=== PATIENT | male | born 1945 | race Caucasian/White ===

== ENCOUNTER 2017-01-13 03:38 | Inpatient (IN) | payer MEDICARE ==
[2017-01-13] VITALS (26 sets, daily range): BP systolic 90–176; BP diastolic 63–109; PULSE 69–136; RESP 14–28; TEMP 97.8–103.1; O2SAT 81–100
[~2017-01-13] VITALS: Ht 170.2 cm; Wt 90.9 kg
[~2017-01-13 03:38] MED LIST: ASPI81CH7 CHEW; ATOR80TA45 PO; BISO5TAB5 PO; DILA1LIQ PO; ERGO2000 PO; FINA5TAB2 PO; FLUT1INH INH; FOLI1CAP7 PO; FURO20TA PO; IPRASOL INH; LEVA750T PO; MORP15TA73 PO; PRED20 PO; TAMS5CAP PO
[2017-01-13] MEDS ORDERED: SODIUM CHLORIDE 0.9% FLUSH 10 ML FLUSH IVF PRN (04:00)
[2017-01-13] MEDS ORDERED: methylPREDNISolone SOD SUCC 125 MG/2 ML VIAL IV PUSH ONE (04:00)
[2017-01-13] MEDS ORDERED: ACETAMINOPHEN 500 MG CPLT PO ONE (04:00)
[2017-01-13] MEDS ORDERED: AZITHROMYCIN INJ 500 MG in SODIUM CHLOR 0.9% 250 ML INJ 250 ML IV ONE (04:15)
[2017-01-13] MEDS ORDERED: CEFEPIME INJ 2,000 MG in SODIUM CHLORIDE 0.9% INJ 100 ML IV ONE (04:15)
[2017-01-13] MEDS: RESP: ALBUTEROL 2.5 MG/IPRATROPIUM 0.5 MG NEB (SCH) INH ×6 (04:21→21:27)
--- NOTE | 2017-01-13 04:29 | RADRPT ---
EXAM DATE/TIME: 01/13/2017 04:09 [place] COMPARISON: CHEST SINGLE AP, February 19, 2016, 3:38. INDICATIONS : Shortness of breath. MEDICAL HISTORY : Hypertension. Cardiovascular disease. Chronic obstructive pulmonary disease. SURGICAL HISTORY : None. ENCOUNTER: Initial ACUITY: 1 day PAIN SCORE: 0/10 LOCATION: Bilateral chest FINDINGS: The cardiac silhouette is enlarged in transverse diameter. There is elevation of the left hemidiaphra gm. There is prominence of the central pulmonary vasculature with indistinct vascular margins compati ble with vascular congestion but no evidence of overt failure. CONCLUSION: 1. Cardiomegaly and findings of vascular congestion without overt failure.8 Elvin Casillas MD on January 13, 2017 at 4:26 Board Certified Radiologist. This report was verified electronically.
[2017-01-13 04:37] LABS: CHLORIDE 97 MEQ/L (98-107); POTASSIUM 3.9 MEQ/L (3.5-5.1); SODIUM (NA) 134 MEQ/L (136-145)
[2017-01-13 04:41] LABS: ANION GAP 4 MEQ/L (5-15); APTT (PATIENT) 27.5 SEC (24.3-30.1); BICARBONATE 32.8 MEQ/L (21.0-32.0); BLOOD UREA NITROGEN 38 MG/DL (7-18); INTERNATIONAL NORMALIZED RATIO 1.1 RATIO; MAGNESIUM 2.1 MG/DL (1.5-2.5); PROTHROMBIN TIME - PATIENT 11.7 SEC (9.8-11.6)
[2017-01-13 04:43] LABS: AUTOMATED NEUTROPHIL # 12.2 TH/MM3 (1.8-7.7); BASOPHIL % 0.3 % (0.0-2.0); EOSINOPHIL # 0.6 TH/MM3 (0-0.4); HEMATOCRIT 40.2 % (39.0-51.0); LYMPH % 6.6 % (9.0-44.0); LYMPHOCYTE # 0.9 TH/MM3 (1.0-4.8); MEAN CELL VOLUME 83.2 FL (80.0-100.0); MEAN CORPUSCULAR HEMOGLOBIN 27.1 PG (27.0-34.0); MEAN CORPUSCULAR HGB CONC 32.5 % (32.0-36.0); MONO % 2.2 % (0.0-8.0); NEUT % 86.9 % (16.0-70.0); PLATELET COUNT 237 TH/MM3 (150-450); RED BLOOD COUNT 4.83 MIL/MM3 (4.50-5.90); RED CELL DISTRIBUTION WIDTH 15.6 % (11.6-17.2)
[2017-01-13 04:44] LABS: ALT (GPT) 17 U/L (12-78); AST (GOT) 11 U/L (15-37); GLOMERULAR FILTRATION RATE 79 ML/MIN (>89)
[2017-01-13 04:46] LABS: HEMO FLAGS DIFF FINAL; TOTAL BILIRUBIN ADULT 0.6 MG/DL (0.2-1.0)
[2017-01-13 04:47] LABS: ALKALINE PHOSPHATASE 99 U/L (45-117)
[2017-01-13 04:51] LABS: CREATINE KINASE 42 U/L (39-308)
--- NOTE | 2017-01-13 05:03 | PD ---
HPI Chief Complaint: Respiratory Symptoms Time Seen by Provider: 03:56 Travel History International Travel<30 days: No Contact w/Intl Traveler<30days: No Traveled to known affect area: No History of Present Illness HPI 71-year-old male presents to the emergency department for marked shortness of breath fever and cough worsening since midnight. Patient with fever at home of 10 2F. No medications administered since onset of fever. According to patient and at bedside patient just completed a 10 day course of Levaquin and steroid therapy for outpatient bronchitis/pneumonia. Symptoms have worsened so presents to the emergency room at this time. Patient denies chest pain or orthopnea. Patient has extensive past medical history including dyslipidemia COPD with paralysis of left hemidiaphragm on the care of Dr. Gross chronic pain syndrome with intrathecal pump CAD with stents 2 pneumonia cholecystectomy kidney disease recurring UTI prostatitis ulcer colitis. Patient denies any lower extremity pain or swelling. Patient's had no abdominal pain nausea vomiting or diarrhea. PFSH Past Medical History Narrative Medical CAD cardiac stents hypertension dyslipidemia COPD chronic pain with intrathecal pump polycystic kidney disease; no tobacco use; nursing notes reviewed Hx Anticoagulant Therapy: Yes (PLAVIX) Heart Rhythm Problems: Yes Cancer: No Cardiac Catheterization: Yes Cardiovascular Problems: Yes High Cholesterol: Yes Chest Pain: Yes COPD: Yes ("NON WORKING LEFT DIAPHRAGM AND LUNG") Coronary Artery Disease: Yes Diminished Hearing: No Endocrine: No Gastrointestinal Disorders: Yes GERD: Yes Genitourinary: Yes ( BILATERAL POLYCYSTIC KIDNEYS, UTI) Hypertension: Yes Implanted Vascular Access Dvce: Yes Musculoskeletal: Yes Neurologic: Yes Psychiatric: No Reproductive: No Respiratory: Yes Immunizations Current: Yes Migraines: Yes Sleep Apnea: Yes Past Surgical History Abdominal Surgery: Yes (HERNIA X 5) Body Medical Devices: PAIN PUMP, AND 2 STENTS Cardiac Surgery: Yes (2 STENTS) Coronary Stent: Yes (X 2) Neurologic Surgery: Yes (gas.) Other Surgery: Yes Social History Alcohol Use: Yes (OCC) Tobacco Use: No (FORMER) Substance Use: No Allergies-Medications (Allergen,Severity, Reaction): Coded Allergies: penicillin G (Unverified Allergy, Severe, SHOCK, 01/13/17) *MDRO Multi-Drug Resistant Organism (Unverified Adverse Reaction, Unknown , 01/13/17) MRSA PCR Screen negative 10/05/14 & 02/17/16 Cleared per Infection Control Reported Meds & Prescriptions Reported Meds & Active Scripts Active Duoneb (Ipratropium-Albuterol Neb) 0.5-2.5 Mg/3 Ml Neb 1 Nebule INH Q6HR NEB PRN Prednisone 20 Mg Tab 20 Mg PO BID Reported Ventolin Hfa 18 GM Inh (Albuterol Sulfate) 90 Mcg/Act Aer 1 Puff INH Q4H PRN Potassium Chloride ER (Potassium Chloride) 20 Meq Tab 99 Meq PO DAILY [place] (Hydrocodone-Acetaminophen) 7.5-325 mg Tab 1 Tab PO Q6H PRN Vitamin D2 (Ergocalciferol) 2,000 Unit Tab 2,000 Units PO WEEKLY Furosemide 20 Mg Tab 20 Mg PO DAILY Folic Acid 800 Mcg Cap 1,600 Mcg PO DAILY Flomax (Tamsulosin HCl) 0.4 Mg Cap 0.4 Mg PO BID Finasteride 5 Mg Tab 5 Mg PO HS Do not crush. Dilaudid Liq (Hydromorphone HCl) 1 Mg/Ml Liq 5 Mg PO Q4H PRN Breo Ellipta Inh (Fluticasone/Vilanterol) 100-25 Mcg/Act Inh 1 Puff INH DAILY Use daily at the same time. Bisoprolol (Bisoprolol Fumarate) 5 Mg Tab 2.5 Mg PO DAILY Atorvastatin (Atorvastatin Calcium) 80 Mg Tab 80 Mg PO HS Aspirin Children's (Aspirin) 81 Mg Chew 81 Mg CHEW DAILY Physical Exam Narrative GENERAL: Well-developed elderly male in obvious respiratory distress with hypoxemia placed on supplemental oxygen and BiPAP ordered SKIN: Warm and dry. HEAD: Normocephalic. EYES: No scleral icterus. No injection or drainage. NECK: Supple, trachea midline. No JVD or lymphadenopathy. CARDIOVASCULAR: Regular rate and rhythm without murmurs, gallops, or rubs. RESPIRATORY: Breath sounds equal bilaterally diminished with work of breathing and accessory muscle use. GASTROINTESTINAL: Abdomen soft, non-tender, nondistended. MUSCULOSKELETAL: No cyanosis, or edema. BACK: Nontender without obvious deformity. No CVA tenderness. Data Data Last Documented VS Vital Signs Date Time Temp Pulse Resp B/P (MAP) Pulse Ox O2 Delivery O2 Flow Rate FiO2 01/13/17 05:00 96 BiPAP 01/13/17 04:45 128 16 16.00 80 01/13/17 03:44 103.1 Orders Orders Complete Blood Count With Diff (01/13/17 03:56) Comprehensive Metabolic Panel (01/13/17 03:56) B-Type Natriuretic Peptide (01/13/17 03:56) Act Partial Throm Time (Ptt) (01/13/17 03:56) Prothrombin Time / Inr (Pt) (01/13/17 03:56) Magnesium (Mg) (01/13/17 03:56) Ckmb (Isoenzyme) Profile (01/13/17 03:56) Troponin I (01/13/17 03:56) Urinalysis - C+S If Indicated (01/13/17 03:56) Influenzae A/B Antigen (01/13/17 03:56) Blood Culture (01/13/17 03:56) Iv Access Insert/Monitor (01/13/17 03:56) Electrocardiogram (01/13/17 03:56) Ecg Monitoring (01/13/17 03:56) Oximetry (01/13/17 03:56) Oxygen Administration (01/13/17 03:56) Chest, Single Ap (01/13/17 03:56) Sodium Chloride 0.9% Flush (Ns Flush) (01/13/17 04:00) Methylprednisolone So Succ Inj (Solumedr (01/13/17 04:00) Albuterol-Ipratropium Neb (Duoneb Neb) (01/13/17 04:00) Resp Bipap / Cpap Non Invas Vt (01/13/17 03:56) Acetaminophen (Tylenol) (01/13/17 04:00) Lactic Acid Sepsis Protocol (01/13/17 03:56) Cefepime Inj (Maxipime Inj) (01/13/17 04:15) Azithromycin Inj (Zithromax Inj) (01/13/17 04:15) Admit Order (Ed Use Only) (01/13/17 ) [employer] Adf Developer / Telemetry [id number] (01/13/17 05:39) Diet Heart Healthy (01/13/17 Breakfast) Activity Bed Rest (01/13/17 05:39) Notify Dr: Other (01/13/17 05:39) Labs Laboratory Tests Test 01/13/17 00:25 01/13/17 04:00 01/13/17 04:05 Urine Color YELLOW Urine Turbidity SLIGHT Urine pH 6.0 Urine Specific [place] 1.028 Urine Protein 30 mg/dL Urine Glucose (UA) 100 mg/dL Urine Ketones NEG mg/dL Urine Occult Blood TRACE Urine Nitrite NEG Urine Bilirubin NEG Urine Leukocyte Esterase SMALL Urine RBC 4-9 /hpf Urine WBC 50-99 /hpf Urine Squamous Epithelial Cells 0-5 /hpf Urine Hyaline Casts 0-2 /lpf Urine Mucus FEW /lpf Urine Yeast with Hyphae MANY Microscopic Urinalysis Comment CULTURE INDICATED B-Type Natriuretic Peptide 83 PG/ML White Blood Count 14.0 TH/MM3 Red Blood Count 4.83 MIL/MM3 Hemoglobin 13.1 GM/DL Hematocrit 40.2 % Mean Corpuscular Volume 83.2 FL Mean Corpuscular Hemoglobin 27.1 PG Mean Corpuscular Hemoglobin Concent 32.5 % Red Cell Distribution Width 15.6 % Platelet Count 237 TH/MM3 Mean Platelet Volume 8.1 FL Neutrophils (%) (Auto) 86.9 % Lymphocytes (%) (Auto) 6.6 % Monocytes (%) (Auto) 2.2 % Eosinophils (%) (Auto) 4.0 % Basophils (%) (Auto) 0.3 % Neutrophils # (Auto) 12.2 TH/MM3 Lymphocytes # (Auto) 0.9 TH/MM3 Monocytes # (Auto) 0.3 TH/MM3 Eosinophils # (Auto) 0.6 TH/MM3 Basophils # (Auto) 0.0 TH/MM3 CBC Comment DIFF FINAL Differential Comment Prothrombin Time 11.7 SEC Prothromb Time International Ratio 1.1 RATIO Activated Partial Thromboplast Time 27.5 SEC Blood Urea Nitrogen 38 MG/DL Creatinine 0.94 MG/DL Random Glucose 132 MG/DL Total Protein 6.9 GM/DL Albumin 3.1 GM/DL Calcium Level 8.9 MG/DL Magnesium Level 2.1 MG/DL Alkaline Phosphatase 99 U/L Aspartate Amino Transf (AST/SGOT) 11 U/L Alanine Aminotransferase (ALT/SGPT) 17 U/L Total Bilirubin 0.6 MG/DL Sodium Level 134 MEQ/L Potassium Level 3.9 MEQ/L Chloride Level 97 MEQ/L Carbon Dioxide Level 32.8 MEQ/L Anion Gap 4 MEQ/L Estimat Glomerular Filtration Rate 79 ML/MIN Lactic Acid Level 0.8 mmol/L Total Creatine Kinase 42 U/L Troponin I LESS THAN 0.02 NG/ML MDM Medical Decision Making Medical Screen Exam Complete: Yes Emergency Medical Condition: Yes Medical Record Reviewed: Yes Interpretation(s) EKG: Sinus tachycardia rate [address] elevation or injury pattern change noted no ectopy Chest x-ray cardiomegaly elevated left hemidiaphragm no noted lobar infiltrate but interstitial pattern concerning for pneumonia versus failure; BNP 82 CBC & BMP Diagram 01/13/17 04:05 Total Protein 6.9, Albumin 3.1 L, Calcium Level 8.9, Magnesium Level 2.1, Alkaline Phosphatase 99, Aspartate Amino Transf (AST/SGOT) 11 L, Alanine Aminotransferase (ALT/SGPT) 17, Total Bilirubin 0.6 Vital Signs Date Time Temp Pulse Resp B/P (MAP) Pulse Ox O2 Delivery O2 Flow Rate FiO2 01/13/17 03:44 103.1 136 26 172/109 (130) 81 Differential Diagnosis Dyspnea, pneumonia, CHF, ACS, LA, PE, pleural effusion, pericardial effusion, viral syndrome, influenza Narrative Course Patient placed on die turner with continuous pulse oximetry BiPAP ordered acetaminophen 1 g ordered blood cultures obtained along with lactic acid EKG performed which shows sinus tachycardia no injury pattern patient administered cefepime, azithromycin, and tobramycin in view of recent completion of 10 day course of Levaquin and steroid therapy with worsening symptoms. Patient given DuoNeb updrafts 3 and Solu-Medrol 125 mg IV At 5:14 AM patient is clinically improved on BiPAP oxygen saturations 98% heart rate has decreased to 110 blood pressure remains elevated work of breathing has diminished patient reports that he is symptomatically improved Intensity was notified regarding patient's admission to ICU patient markedly improved from initial presentation to ICU plan will be to admit to [facility] service Critical Care Narrative Aggregate critical care time was 35 minutes. Time to perform other separately billable procedures was not included in the critical care time. My time did not include minutes spent treating any other patients simultaneously or on activities that did not directly contribute to the patient's treatment. The services I provided to this patient were to treat and/or prevent clinically significant deterioration that could result in: Respiratory failure, LA, I provided critical care services requiring my management, as noted below: Chart data review, documentation time, medication orders and management, vital sign assessments/reviewing monitor data, ordering and reviewing lab tests, ordering and interpreting/reviewing x-rays and diagnostic studies, care of the patient and discussion of the patient with the admitting physicians. Sepsis Criteria SIRS Criteria (2 or more): Temp > 100.9 or < 96.8, Heart rate over 90, RR > 20 or PaCO2 < 32, WBC > 99991, < 4000 or > 10% bands Sepsis Criteria (SIRS+source): Infect source susp/known Physician Communication Physician Communication Skiver [place] notified; call placed to [facility] service for admission Diagnosis Primary Impression: Pneumonia Additional Impressions: Hypoxia COPD exacerbation Admitting Information Admitting Physician Requests: Admit Lora Ortiz MD Jan 13, 2017 05:03
[2017-01-13] MEDS ORDERED: RESP: ALBUTEROL 2.5 MG/IPRATROPIUM 0.5 MG NEB (PRN) INH (05:45)
[2017-01-13] MEDS ORDERED: ONDANSETRON HCL 4 MG/2 ML VIAL IV PUSH PRN (05:45)
[2017-01-13] MEDS ORDERED: ACETAMINOPHEN 325 MG TAB PO PRN (05:45)
[2017-01-13] MEDS ORDERED: SODIUM CHLORIDE 0.9% FLUSH 10 ML FLUSH IV FLUSH PRN (05:45)
[2017-01-13] MEDS ORDERED: POTA-163 PO (07:04)
[2017-01-13] MEDS ORDERED: CIPR-9 PO (07:04)
[2017-01-13] MEDS ORDERED: VENTAER INH (07:04)
[2017-01-13] MEDS ORDERED: HYDR-3288 PO (07:04)
[2017-01-13 08:16] LABS: BLOOD GAS BASE EXCESS 7.2 mmol/L (-2-2); BLOOD GAS CARBOXYHEMOGLOBIN 1.1 % (0-4); BLOOD GAS HCO3 32 mmol/L (22-26); BLOOD GAS METHEMOGLOBIN 1.3 % (0-2); BLOOD GAS O2 HGB SATURATION 97 % (90-100); BLOOD GAS OXYGEN CONTENT 18.2 Vol % (12.0-20.0); BLOOD GAS PCO2 51 mmHg (38-42); BLOOD GAS PO2 212 mmHg (61-120)
--- NOTE | 2017-01-13 08:16 | EKG ---
Date Performed: 01/13/2017 Time Performed: 04:18:21 PTAGE: 71 years EKG: SINUS TACHYCARDIA LEFT ATRIAL ENLARGEMENT NONSPECIFIC ST & T-WAVE ABNORMALITY ABNORMAL ECG PREVIOUS TRACING : 02/17/2016 07.02 No significant change from previous tracing noted. DOCTOR: Charlie Parra Interpretating Date/Time 01/13/2017 08:14:43
[2017-01-13 08:17] LABS: CRITICAL VALUE YES; DRAW SITE RT RADIAL; FIO2 70 %; NUMBER OF ARTERIAL PUNCTURES 1; OXYGEN DEVICE BIPAP; STAT YES; ULNAR PULSE PRESENT; VENT SETTINGS IPAP 12/EPAP 5
[2017-01-13] MEDS: SODIUM CHLORIDE 0.9% FLUSH 10 ML FLUSH IV FLUSH SCH ×2 (11:30→20:51)
[2017-01-13] MEDS: ENOXAPARIN SODIUM 40 MG/0.4 ML SYRINGE SQ SCH (13:00)
[2017-01-13] MEDS ORDERED: CHLORHEXIDINE GLUCONATE 2 % 1 PACK (2 CLOTHS)(extra cloths) TOPICAL PRN (13:15)
[2017-01-13] MEDS ORDERED: ACETAMINOPHEN/HYDROcodone 325 MG/5 MG TAB PO PRN (14:00)
--- NOTE | 2017-01-13 14:01 | HHI.HP ---
[facility] Ralph Perez MD Admission Diagnosis Sepsis; pneumonia; copd Diagnoses: (1) Failure of outpatient treatment Diagnosis: Principal (2) Community acquired pneumonia Diagnosis: Principal (3) COPD exacerbation Diagnosis: Secondary (4) Hypoxia Diagnosis: Secondary Chief Complaint: Fever and dyspnea Travel History International Travel<30 Days: No Contact w/Intl Traveler <30 Da: No Traveled to Known Affected Are: No History of Present Illness Written by Farzaneh Bashir, acting as scribe for Dr. Bustillo on 01/13/17 at 13:50. Mr. Palacio is a 71-year-old male patient with a known medical history of hypertension, hyperlipidemia, chronic pain with intrathecal pain pump and COPD who presented to the ED with complaints of worsening shortness of breath, fever and cough. Patient states he has completed a 10-day course of Levaquin and steroids for community-acquired pneumonia, started to feel better when all of a sudden overnight he developed a fever of 102 and developed worsening dyspnea and chills. Denies any recent chest pain, headache, abdominal pain, nausea, vomiting, diarrhea or dysuria. Patient does follow with Dr. 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 Usually uses a Trilogy machine at home for COPD. Also sees Dr. Dexter for his pain management and management of his intrathecal pain pump. It should be noted that patient usually has pneumonia every couple years requiring antibiotics. Review of Systems Constitutional: COMPLAINS OF: Fever, Chills Eyes: DENIES: Blurred vision Respiratory: COMPLAINS OF: Shortness of breath, DENIES: Cough Cardiovascular: DENIES: Chest pain, Palpitations, Lower Extremity Edema Gastrointestinal: DENIES: Abdominal pain, Constipation, Diarrhea, Nausea, Vomiting Psychiatric: COMPLAINS OF: Anxiety Except as stated in HPI: all other systems reviewed are Neg Past Family Social History Past Medical History CAD with history of stent placement Hypertension Dyslipidemia COPD Chronic pain with intrathecal pump Polycystic kidney disease Left lung paraesthesia GERD Sleep apnea Past Surgical History Intrathecal pain pump Hernia repair x 5 Cardiac stent placement x 2 Reported Medications Active Duoneb (Ipratropium-Albuterol Neb) 0.5-2.5 Mg/3 Ml Neb 1 Nebule INH Q6HR NEB PRN Prednisone 20 Mg Tab 20 Mg PO BID Reported Cipro (Ciprofloxacin HCl) 500 Mg Tab 500 Mg PO BID Ventolin Hfa 18 GM Inh (Albuterol Sulfate) 90 Mcg/Act Aer 1 Puff INH Q4H PRN Potassium Chloride ER (Potassium Chloride) 20 Meq Tab 99 Meq PO DAILY Tutwiler (Hydrocodone-Acetaminophen) 7.5-325 mg Tab 1 Tab PO Q6H PRN Vitamin D2 (Ergocalciferol) 2,000 Unit Tab 2,000 Units PO WEEKLY Furosemide 20 Mg Tab 20 Mg PO DAILY Folic Acid 800 Mcg Cap 1,600 Mcg PO DAILY Flomax (Tamsulosin HCl) 0.4 Mg Cap 0.4 Mg PO BID Finasteride 5 Mg Tab 5 Mg PO HS Do not crush. Dilaudid Liq (Hydromorphone HCl) 1 Mg/Ml Liq 5 Mg PO Q4H PRN Breo Ellipta Inh (Fluticasone/Vilanterol) 100-25 Mcg/Act Inh 1 Puff INH DAILY Use daily at the same time. Bisoprolol (Bisoprolol Fumarate) 5 Mg Tab 2.5 Mg PO DAILY Atorvastatin (Atorvastatin Calcium) 80 Mg Tab 80 Mg PO HS Aspirin Children's (Aspirin) 81 Mg Chew 81 Mg CHEW DAILY Allergies: Coded Allergies: penicillin G (Unverified Allergy, Severe, SHOCK, 01/13/17) *MDRO Multi-Drug Resistant Organism (Unverified Adverse Reaction, Unknown , 01/13/17) MRSA PCR Screen negative 10/05/14 & 02/17/16 Cleared per Infection Control Active Ordered Medications Current Medications Medications (Trade) Dose Ordered Sig/Bello Route Start Time Stop Time Status Last Admin Cefepime HCl 2000 mg/Sodium Chloride 100 ml @ 200 mls/hr Q8HR IV 01/13/17 14:00 Azithromycin 500 mg/Sodium Chloride 250 ml @ 250 mls/hr Q24H IV 01/14/17 07:00 (NS Flush) 2 ml UNSCH PRN IV FLUSH 01/13/17 05:45 (NS Flush) 2 ml BID IV FLUSH 01/13/17 09:00 (Tylenol) 650 mg Q4H PRN PO 01/13/17 05:45 (Zofran Inj) 4 mg Q6H PRN IV PUSH 01/13/17 05:45 (Duoneb Neb) 1 ampule Q6HR NEB INH 01/13/17 10:00 01/13/17 10:55 (Duoneb Neb) 1 ampule Q4HR NEB PRN INH 01/13/17 05:45 (Lovenox Inj) 40 mg Q24H SQ 01/13/17 09:00 Miscellaneous Information Patient in critical care unit? Ass... [id number] .XX 01/13/17 13:15 (Chlorhexidine 2% Cloth) 3 pack DAILY@04 TOPICAL 01/14/17 04:00 01/18/17 04:01 (Chlorhexidine 2% Cloth) 3 pack UNSCH PRN TOPICAL 01/13/17 13:15 01/18/17 13:10 Family History Paternal medical history significant for spinal fusion, hernias and aortic aneurysm. Maternal medical history significant for CABG. Social History Denies any tobacco use. Admits to occasional alcohol use. Denies any illicit drug use. Physical Exam Vital Signs Vital Signs Date Time Temp Pulse Resp B/P (MAP) Pulse Ox O2 Delivery O2 Flow Rate FiO2 01/13/17 12:00 99.3 74 18 125/78 (94) 96 01/13/17 12:00 74 01/13/17 11:30 96 Nasal Cannula 5.00 01/13/17 11:00 96 Nasal Cannula 5.00 01/13/17 10:53 66 16 99/67 (78) 94 01/13/17 10:45 95 35 01/13/17 10:05 97.8 69 18 103/69 (80) 94 BiPAP 01/13/17 10:05 94 BiPAP 01/13/17 09:20 99 40 01/13/17 08:15 100 70 01/13/17 07:47 92 20 110/75 (87) 96 BiPAP 01/13/17 07:15 100 80 01/13/17 06:55 90 20 98 BiPAP 70 01/13/17 06:27 93 16 119/71 (87) 100 BiPAP 01/13/17 05:45 96 16 101/71 (81) 99 BiPAP 01/13/17 05:00 96 BiPAP 01/13/17 04:45 128 16 176/103 (127) 94 BiPAP 16.00 80 01/13/17 04:15 94 100 01/13/17 03:55 130 28 90 Nasal Cannula 4.00 01/13/17 03:50 90 Nasal Cannula 4.00 01/13/17 03:44 103.1 136 28 122/109 (113) 01/13/17 03:44 103.1 136 26 172/109 (130) 81 Physical Exam GENERAL: This is a well-nourished, well-developed male patient, lying in bed with complaint of generalized pain. SKIN: No rashes, ecchymoses or lesions. Warm and dry. HEAD: Atraumatic. Normocephalic. Pupils equal round and reactive. Extraocular motions intact. No scleral icterus. No injection or drainage. Nose without bleeding. Airway patent. NECK: Trachea midline. No JVD. Supple. CARDIOVASCULAR: Regular rate and rhythm without murmurs, gallops, or rubs. RESPIRATORY: Minimal lung sounds in left lung field. Basilar crackles in right lung mosqueda. Breath sounds equal bilaterally. No wheezes, rales, or rhonchi. GASTROINTESTINAL: Abdomen soft, non-tender, nondistended. No guarding. Active bs x 4 q. MUSCULOSKELETAL: Extremities without clubbing, cyanosis, or edema. No joint tenderness, effusion, or edema noted. NEUROLOGICAL: Awake and alert. Cranial nerves II through XII intact. Motor and sensory grossly within normal limits. Five out of 5 muscle strength in all muscle groups. Normal speech. Laboratory Laboratory Tests Test 01/13/17 04:00 01/13/17 04:05 01/13/17 08:15 01/13/17 11:30 B-Type Natriuretic Peptide 83 White Blood Count 14.0 Red Blood Count 4.83 Hemoglobin 13.1 Hematocrit 40.2 Mean Corpuscular Volume 83.2 Mean Corpuscular Hemoglobin 27.1 Mean Corpuscular Hemoglobin Concent 32.5 Red Cell Distribution Width 15.6 Platelet Count 237 Mean Platelet Volume 8.1 Neutrophils (%) (Auto) 86.9 Lymphocytes (%) (Auto) 6.6 Monocytes (%) (Auto) 2.2 Eosinophils (%) (Auto) 4.0 Basophils (%) (Auto) 0.3 Neutrophils # (Auto) 12.2 Lymphocytes # (Auto) 0.9 Monocytes # (Auto) 0.3 Eosinophils # (Auto) 0.6 Basophils # (Auto) 0.0 CBC Comment DIFF FINAL Differential Comment Prothrombin Time 11.7 Prothromb Time International Ratio 1.1 Activated Partial Thromboplast Time 27.5 Blood Urea Nitrogen 38 Creatinine 0.94 Random Glucose 132 Total Protein 6.9 Albumin 3.1 Calcium Level 8.9 Magnesium Level 2.1 Alkaline Phosphatase 99 Aspartate Amino Transf (AST/SGOT) 11 Alanine Aminotransferase (ALT/SGPT) 17 Total Bilirubin 0.6 Sodium Level 134 Potassium Level 3.9 Chloride Level 97 Carbon Dioxide Level 32.8 Anion Gap 4 Estimat Glomerular Filtration Rate 79 Lactic Acid Level 0.8 Total Creatine Kinase 42 Troponin I LESS THAN 0.02 Blood Gas Puncture Site RT RADIAL Blood Gas Patient Temperature 37.0 Blood Gas HCO3 32 Blood Gas Base Excess 7.2 Blood Gas Oxygen Saturation 97 Arterial Blood pH 7.41 Arterial Blood Partial Pressure CO2 51 Arterial Blood Partial Pressure O2 212 Arterial Blood Oxygen Content 18.2 Arterial Blood Carboxyhemoglobin 1.1 Arterial Blood Methemoglobin 1.3 Blood Gas Hemoglobin 13.0 Oxygen Delivery Device BIPAP Blood Gas Ventilator Setting IPAP 12/EPAP 5 Blood Gas Inspired Oxygen 70 Date/Time Source Procedure Growth Status 01/13/17 04:05 Blood Peripheral Aerobic Blood Culture Pending Received 01/13/17 04:05 Blood Peripheral Anaerobic Blood Culture Pending Received 01/13/17 06:04 Nasal Washing Influenza Types A,B Antigen (FELICE) - Final NEGATIVE FOR FLU A AND B ANTIGEN.... Complete Result Diagram: 01/13/1740401/13/17 040 Imaging Last Impressions Chest X-Ray 01/13/17 0356 Signed Impressions: Service Date/Time: Friday, January 13, 2017 04:09 - CONCLUSION: 1. Cardiomegaly and findings of vascular congestion without overt failure.8 Elvin Casillas MD Septic Shock Reassessment Heart: Regular rate and rhythm Lungs: Clear Skin: Warm Peripheral Pulses: Bounding Right Radial Bounding Left Radial Capillary Refill: <2 seconds Caprini VTE Risk Assessment Caprini VTE Risk Assessment: Mod/High Risk (score >= 2) Caprini Risk Assessment Model Point Value = 1 Point Value = 2 Point Value = 3 Point Value = 5 Age 41-60 Minor surgery BMI > 25 kg/m2 Swollen legs Varicose veins or History of unexplained or recurrent spontaneous Oral contraceptives or hormone replacement Sepsis (< 1 month) Serious lung disease, including pneumonia (< 1 month) Abnormal pulmonary function Acute myocardial infarction Congestive heart failure (< 1 month) History of inflammatory bowel disease Medical patient at bed rest Age 61-74 Arthroscopic surgery Major open surgery (> 45 min) Laparoscopic surgery (> 45 min) Malignancy Confined to bed (> 72 hours) Immobilizing plaster cast Central venous access Age >= 75 History of VTE Family history of VTE Factor V Leiden Prothrombin [id number] Lupus anticoagulant Anticardiolipin antibodies Elevated serum homocysteine Heparin-induced thrombocytopenia Other congenital or acquired thrombophilia Stroke (< 1 month) Elective arthroplasty Hip, pelvis, or leg fracture Acute spinal cord injury (< 1 month) Prophylaxis Regimen Total Risk Factor Score Risk Level Prophylaxis Regimen 0-1 Low Early ambulation 2 Moderate Order ONE of the following: *Sequential Compression Device (SCD) *Heparin 5000 units SQ BID 3-4 Higher Order ONE of the following medications: *Heparin 5000 units SQ TID *Enoxaparin/Lovenox 40 mg SQ daily (WT < 150 kg, CrCl > 30 mL/min) *Enoxaparin/Lovenox 30 mg SQ daily (WT < 150 kg, CrCl > 10-29 mL/min) *Enoxaparin/Lovenox 30 mg SQ BID (WT < 150 kg, CrCl > 30 mL/min) AND/OR *Sequential Compression Device (SCD) 5 or more Highest Order ONE of the following medications: *Heparin 5000 units SQ TID (Preferred with Epidurals) *Enoxaparin/Lovenox 40 mg SQ daily (WT < 150 kg, CrCl > 30 mL/min) *Enoxaparin/Lovenox 30 mg SQ daily (WT < 150 kg, CrCl > 10-29 mL/min) *Enoxaparin/Lovenox 30 mg SQ BID (WT < 150 kg, CrCl > 30 mL/min) AND *Sequential Compression Device (SCD) Assessment and Plan Assessment and Plan Mr. Palacio is a 71-year-old male patient with a known medical history of hypertension, hyperlipidemia, chronic pain with intrathecal pain pump and COPD who presented to the ED with complaints of worsening shortness of breath, fever and cough. Fever 103.1; WBC 14; lactic acid 0.8; CXR cardiomegaly; BNP 83; Troponin negative; ABG with elevated CO2. Sepsis suspect secondary to community-acquired pneumonia with failed outpatient treatment with Levaquin (tachycardia, leukocytosis with mild bandemia, fever) vs possibility of intrathecal pain pump infection - WBC on presentation 14. Fever 103.1. Tachycardia 130's. Lactic acid WNL. Troponin flat. - CXR reviewed showing cardiomegaly and findings of vascular congestion without overt failure. - Blood cultures ordered and pending. Follow growth. UA ordered and pending. Follow. - Nasal washing for influenza negative. - Acetaminophen available PRN fever. - Azithromycin 500 mg IV q24hr and Cefepime 2 g IV q8hr. Lactobacillus PO TID. - Supplemental O2 to keep sats >92%. Continue cardiac telemetry. - Continue BIPAP with at home settings. - CBC and BMP ordered in am. Follow. COPD, not in exacerbation - Methylprednisone 125 mg IV x 1 given in ED. - Duonebs available scheduled and PRN. - Supportive care. CAD with cardiac stents placement: Continue Aspirin 81 mg PO daily and Bisoprolol. Hypertension, chronic: Controlled at this time. Continue to monitor BP trends. Chronic back pain Intrathecal pain pump in place with possible source of infection - Tutwiler PO available PRN per pain scale. If not effective for pain complaint will increase as needed. Continue to follow clinically. Dyslipidemia, chronic: Continue home Atorvastatin. BPH: Continue home Flomax and Proscar. DVT prophylaxis: SCDs. Lovenox. Discussed Condition With This note was transcribed by scribe [Farzaneh Bashir]. I, Dr. Jagdeep Bustillo personally performed the history, physical exam, and medical decision making; and confirmed the accuracy of the information in the transcribed note. Authenticated by Dr. Jagdeep Bustillo on 01/13/17 at 14:33. Physician Certification 2 Midnight Certification Type: Admission for Inpatient Services Order for Inpatient Services The services are ordered in accordance with Medicare regulations or non- Medicare payer requirements, as applicable. In the case of services not specified as inpatient-only, they are appropriately provided as inpatient services in accordance with the 2-midnight benchmark. Estimated LOS (days): 3 3 days is the estimated time the patient will need to remain in the hospital, assuming treatment plan goals are met and no additional complications. Post-Hospital Plan: Home Farzaneh Bashir Jan 13, 2017 14:01 Jagdeep Bustillo MD Jan 13, 2017 14:33
[2017-01-13] MEDS ORDERED: RESP: ALBUTEROL 2.5 MG/3 ML NEB (PRN) NEB (14:30)
[2017-01-13] MEDS ORDERED: ERGOCALCIFEROL 2000 UNIT PO SCH (14:30)
[2017-01-13] MEDS ORDERED: ALBUTEROL SULFATE 90 MCG/ACT HFA 8 GM INHALER INH PRN (14:30)
[2017-01-13] MEDS: CEFEPIME INJ 2,000 MG in SODIUM CHLORIDE 0.9% INJ 100 ML IV SCH ×2 (14:38→20:51)
[2017-01-13] MEDS: ACETAMINOPHEN/HYDROcodone 325 MG/10 MG TAB PO PRN ×2 (14:55→23:18)
[2017-01-13] MEDS ORDERED: PILL SPLITTER OTHER PRN (15:45)
[2017-01-13] MEDS: LACTOBACILLUS ACIDOPHILUS TAB PO SCH (17:49)
[2017-01-13] MEDS: FINASTERIDE 5 MG TAB PO SCH (20:50)
[2017-01-13] MEDS: ATORVASTATIN 40 MG TAB PO SCH (20:50)
[2017-01-13] MEDS: TAMSULOSIN HCL 0.4 MG CAP PO SCH (20:50)
[2017-01-14] VITALS (24 sets, daily range): BP systolic 84–129; BP diastolic 51–77; PULSE 62–82; RESP 14–20; TEMP 97.2–98.8; O2SAT 92–95
[2017-01-14] MEDS: ACETAMINOPHEN/HYDROcodone 325 MG/10 MG TAB PO PRN ×3 (00:18→23:24)
[2017-01-14 00:43] LABS: GLUCOSE,URINE 100 mg/dL (NEG); KETONE, URINE NEG (NEG); NITRITE,URINE NEG (NEG)
[2017-01-14 00:56] LABS: BLOOD, URINE TRACE (NEG)
[2017-01-14 00:57] LABS: URINE COLOR YELLOW (YELLW/STRAW)
[2017-01-14 00:58] LABS: HYALINE CAST, URINE 0-2 /lpf (RARE); MUCUS URINE FEW /lpf (OCC)
[2017-01-14 00:59] LABS: COMMENT (UR) CULTURE INDICATED; CULTURE IF INDICATED CULTURE INDICATED; SQUAMOUS EPITHELIAL CELL URINE 0-5 /hpf (0-5)
[2017-01-14] MEDS: CHLORHEXIDINE GLUCONATE 2 % 1 PACK (2 CLOTHS)(taper/protocol) TOPICAL SCH (03:53)
[2017-01-14] MEDS: RESP: ALBUTEROL 2.5 MG/IPRATROPIUM 0.5 MG NEB (SCH) INH ×4 (04:10→21:28)
[2017-01-14 05:17] LABS: AUTOMATED NEUTROPHIL # 11.7 TH/MM3 (1.8-7.7); EOSINOPHIL % 0.3 % (0.0-4.0); HEMATOCRIT 34.9 % (39.0-51.0); HEMO FLAGS DIFF FINAL; LYMPH % 5.8 % (9.0-44.0); LYMPHOCYTE # 0.8 TH/MM3 (1.0-4.8); MEAN CELL VOLUME 82.7 FL (80.0-100.0); MEAN CORPUSCULAR HEMOGLOBIN 27.3 PG (27.0-34.0); MONO % 4.3 % (0.0-8.0); NEUT % 89.6 % (16.0-70.0); PLATELET COUNT 236 TH/MM3 (150-450); RED BLOOD COUNT 4.22 MIL/MM3 (4.50-5.90); RED CELL DISTRIBUTION WIDTH 15.3 % (11.6-17.2); WHITE BLOOD COUNT 13.1 TH/MM3 (4.0-11.0)
[2017-01-14 05:27] LABS: CHLORIDE 99 MEQ/L (98-107); POTASSIUM 4.2 MEQ/L (3.5-5.1); SODIUM (NA) 137 MEQ/L (136-145)
[2017-01-14 06:32] LABS: ALKALINE PHOSPHATASE 76 U/L (45-117); ALT (GPT) 13 U/L (12-78); ANION GAP 3 MEQ/L (5-15); AST (GOT) 5 U/L (15-37); BICARBONATE 35.2 MEQ/L (21.0-32.0); BLOOD UREA NITROGEN 46 MG/DL (7-18); GLOMERULAR FILTRATION RATE 76 ML/MIN (>89); TOTAL BILIRUBIN ADULT 0.4 MG/DL (0.2-1.0)
[2017-01-14] MEDS: CEFEPIME INJ 2,000 MG in SODIUM CHLORIDE 0.9% INJ 100 ML IV SCH ×3 (06:38→21:01)
[2017-01-14] MEDS: BISOPROLOL FUMARATE 5 MG TAB PO SCH (09:00)
[2017-01-14] MEDS ORDERED: POTASSIUM CHLORIDE 20 MEQ CONTROLLED RELEASE TAB PO SCH (09:00)
[2017-01-14] MEDS ORDERED: ERGOCALCIFEROL (VIT D2) 50,000 UNIT CAP PO SCH (09:00)
[2017-01-14] MEDS: ENOXAPARIN SODIUM 40 MG/0.4 ML SYRINGE SQ SCH (09:00)
[2017-01-14] MEDS: FUROSEMIDE 20 MG TAB PO SCH (09:13)
[2017-01-14] MEDS: FOLIC ACID 1 MG TAB PO SCH (09:13)
[2017-01-14] MEDS: LACTOBACILLUS ACIDOPHILUS TAB PO SCH ×3 (09:13→18:00)
[2017-01-14] MEDS: predniSONE 5 MG TAB PO SCH (09:14)
[2017-01-14] MEDS: TAMSULOSIN HCL 0.4 MG CAP PO SCH ×2 (09:14→21:00)
[2017-01-14] MEDS: ASPIRIN 81 MG CHEW TAB CHEW SCH (09:14)
[2017-01-14] MEDS: SODIUM CHLORIDE 0.9% FLUSH 10 ML FLUSH IV FLUSH SCH ×2 (09:16→21:00)
[2017-01-14] MEDS: FLUTICASONE 100 MCG/VILANTEROL 25 MCG INHALER INH SCH (09:20)
[2017-01-14] MEDS: AZITHROMYCIN INJ 500 MG in SODIUM CHLOR 0.9% 250 ML INJ 250 ML IV SCH (09:20)
--- NOTE | 2017-01-14 12:48 | HHI.PR ---
Subjective Remarks Nursing reports no deterioration since last night. Patient fluctuating on O2 requirement anywhere from 4-5 L. Patient himself says he feels good, is wanting to go home, says he feels as if he would be at his normal baseline. Patient states that it was about 2-3 days in between finishing his outpatient Levaquin course for he showed up to the emergency room with recurring and worsening respiratory symptoms. Objective Vital Signs Date Time Temp Pulse Resp B/P (MAP) Pulse Ox O2 Delivery O2 Flow Rate FiO2 01/14/17 12:00 98.8 01/14/17 08:00 98.0 01/14/17 08:00 64 01/14/17 07:00 96 Nasal Cannula 4.00 01/14/17 06:48 82 01/14/17 05:11 63 01/14/17 05:00 64 15 95/60 (72) 95 01/14/17 04:14 94 35 01/14/17 04:00 62 15 87/51 (63) 94 01/14/17 03:00 97.2 62 16 106/62 (77) 94 01/14/17 02:00 64 01/14/17 02:00 62 15 84/58 (67) 94 01/14/17 01:00 64 14 90/64 (73) 93 01/14/17 00:50 95 35 01/14/17 00:18 16 01/14/17 00:00 72 14 90/59 (69) 94 01/13/17 23:00 78 16 99/64 (76) 92 01/13/17 22:01 80 01/13/17 22:00 70 17 90/63 (72) 94 01/13/17 21:15 74 01/13/17 20:00 98.6 69 14 111/73 (86) 95 01/13/17 20:00 95 Nasal Cannula 4.00 01/13/17 19:15 95 Nasal Cannula 4.00 01/13/17 18:00 70 01/13/17 17:47 69 16 109/72 (84) 01/13/17 16:00 78 01/13/17 14:00 70 01/13/17 13:50 99.4 69 20 107/79 (88) I/O 01/13/17 01/13/17 01/13/17 01/14/1701/14/17 11/7/17 07:00 15:00 23:00 07:00 15:00 23:00 Intake Total 100 ml 250 ml 440 ml Output Total 300 ml 1000 ml Balance 100 ml 250 ml 140 ml -1000 ml Intake Oral 340 ml IV Total 100 ml 250 ml 100 ml Output Urine Total 300 ml 1000 ml # Bowel Movements 1 Result Diagram: 01/14/1742601/14/17426 Objective Remarks Unlabored breathing, on nasal cannula Lung mosqueda are clear on the right, left upper lobe is clear, left lower lobe sounds crackly (which the patient says is chronic) A/P Assessment and Plan Mr. Palacio is a 71-year-old male patient with a known medical history of hypertension, hyperlipidemia, chronic pain with intrathecal pain pump and COPD who presented to the ED with complaints of worsening shortness of breath, fever and cough. Fever 103.1; WBC 14; lactic acid 0.8; CXR cardiomegaly; BNP 83; Troponin negative; ABG with elevated CO2. Clinically improved today per patient. Sepsis suspect secondary to community-acquired pneumonia with failed outpatient treatment with Levaquin (tachycardia, leukocytosis with mild bandemia, fever) vs possibility of intrathecal pain pump infection - Clinically improving, Treat as below, leukocytosis possibly 2/2 steroids, no need to trend at this time given pt is clinically improved and results could be skewed w/ steroids anyway Fever has resolved although this could be masked by steroids, clinically the patient feels improved. Blood cultures no growth 1 day. - Blood cultures ordered and pending. Follow growth. UA ordered and pending. Follow. - Nasal washing for influenza negative. - Acetaminophen available PRN fever. - Azithromycin 500 mg IV q24hr and Cefepime 2 g IV q8hr. Lactobacillus PO TID. - Supplemental O2 to keep sats >92%. Continue cardiac telemetry. - Continue BIPAP with at home settings. Chronic paralysis of left hemidiaphragm - Trilogy machine therapy at home COPD, not in exacerbation - Duonebs available scheduled and PRN. - Supportive care. CAD with cardiac stents placement: Continue Aspirin 81 mg PO daily and Bisoprolol. Hypertension, chronic: Controlled at this time. Continue to monitor BP trends. Chronic back pain Intrathecal pain pump in place with possible source of infection - Drury PO available PRN per pain scale. If not effective for pain complaint will increase as needed. Continue to follow clinically. Dyslipidemia, chronic: Continue home Atorvastatin. BPH: Continue home Flomax and Proscar. DVT prophylaxis: Lovenox. Will trend until BC are negative until tomorrow and then decide for discharge. Pt at 4 L at baseline, is currently near that level. May consider consulting ID for abx selection upon d/c given pt failed outpt tx. Will modify activity restrictions to ad florecita. Ismael Ly MD Jan 14, 2017 12:48
[2017-01-14] MEDS: ATORVASTATIN 40 MG TAB PO SCH (21:00)
[2017-01-14] MEDS: FINASTERIDE 5 MG TAB PO SCH (21:01)
[2017-01-15] VITALS (22 sets, daily range): BP systolic 95–147; BP diastolic 61–83; PULSE 66–100; RESP 15–25; TEMP 97.8–98.7; O2SAT 90–94
[2017-01-15] MEDS: CHLORHEXIDINE GLUCONATE 2 % 1 PACK (2 CLOTHS)(taper/protocol) TOPICAL SCH (04:00)
[2017-01-15] MEDS: RESP: ALBUTEROL 2.5 MG/IPRATROPIUM 0.5 MG NEB (SCH) INH ×3 (04:14→15:44)
[2017-01-15] MEDS: CEFEPIME INJ 2,000 MG in SODIUM CHLORIDE 0.9% INJ 100 ML IV SCH ×2 (05:16→13:42)
[2017-01-15] MEDS: AZITHROMYCIN INJ 500 MG in SODIUM CHLOR 0.9% 250 ML INJ 250 ML IV SCH (05:51)
--- NOTE | 2017-01-15 08:16 | PD.CONS ---
History of Present Illness Service Infectious Disease Consult Requested By Reason for Consult Failed out[patient treatment Primary Care Physician Ralph Perez MD Diagnoses: (1) COPD exacerbation (2) Community acquired pneumonia (3) Failure of outpatient treatment Past Family Social History Allergies: Coded Allergies: penicillin G (Unverified Allergy, Severe, SHOCK, 01/13/17) *MDRO Multi-Drug Resistant Organism (Unverified Adverse Reaction, Unknown , 01/13/17) MRSA PCR Screen negative 10/05/14 & 02/17/16 Cleared per Infection Control Physical Exam Vital Signs Vital Signs Date Time Temp Pulse Resp B/P (MAP) Pulse Ox O2 Delivery O2 Flow Rate FiO2 01/15/17 07:32 92 Nasal Cannula 4.50 01/15/17 07:00 90 Nasal Cannula 5.00 01/15/17 06:00 68 01/15/17 05:01 66 17 99/71 (80) 94 01/15/17 04:15 93 35 01/15/17 04:01 98.1 66 17 99/61 (74) 93 01/15/17 04:00 66 01/15/17 03:01 66 15 103/67 (79) 93 01/15/17 02:01 74 17 95/64 (74) 92 01/15/17 02:00 72 01/15/17 01:01 76 16 99/66 (77) 92 01/15/17 00:40 93 35 01/15/17 00:01 78 17 107/68 (81) 92 01/15/17 00:00 76 01/14/17 23:01 78 17 129/77 (94) 92 01/14/17 22:01 74 19 126/74 (91) 93 01/14/17 22:00 76 01/14/17 21:01 68 19 107/75 (86) 93 01/14/17 20:37 92 Nasal Cannula 3.00 01/14/17 20:01 98.2 72 19 120/76 (91) 92 01/14/17 20:00 70 01/14/17 19:00 72 20 114/76 (89) 93 01/14/17 19:00 Nasal Cannula 3.00 01/14/17 18:00 74 01/14/17 16:00 98.4 01/14/17 16:00 72 01/14/17 14:00 64 01/14/17 12:00 98.8 01/14/17 12:00 74 01/14/17 10:00 78 Physical Exam GENERAL: This is a well-nourished, well-developed patient, in no apparent distress. SKIN: No rashes, ecchymoses or lesions. Cool and dry. HEAD: Atraumatic. Normocephalic. No temporal or scalp tenderness. EYES: Pupils equal round and reactive. Extraocular motions intact. No scleral icterus. No injection or drainage. ENT: Nose without bleeding, purulent drainage or septal hematoma. Throat without erythema, tonsillar hypertrophy or exudate. Uvula midline. Airway patent. NECK: Trachea midline. No JVD or lymphadenopathy. Supple, nontender, no meningeal signs. CARDIOVASCULAR: Regular rate and rhythm without murmurs, gallops, or rubs. RESPIRATORY: Clear to auscultation. Breath sounds equal bilaterally. No wheezes , rales, or rhonchi. GASTROINTESTINAL: Abdomen soft, non-tender, nondistended. No hepato-splenomegaly , or palpable masses. No guarding. MUSCULOSKELETAL: Extremities without clubbing, cyanosis, or edema. No joint tenderness, effusion, or edema noted. No calf tenderness. Negative Homans sign bilaterally. NEUROLOGICAL: Awake and alert. Cranial nerves II through XII intact. Motor and sensory grossly within normal limits. Five out of 5 muscle strength in all muscle groups. Normal speech. Laboratory Date/Time Source Procedure Growth Status 01/13/17 04:05 Blood Peripheral Aerobic Blood Culture - Preliminary NO GROWTH IN 1 DAY Resulted 01/13/17 04:05 Blood Peripheral Anaerobic Blood Culture - Preliminary NO GROWTH IN 1 DAY Resulted 01/13/17 06:04 Nasal Washing Influenza Types A,B Antigen (FELICE) - Final NEGATIVE FOR FLU A AND B ANTIGEN.... Complete 01/13/17 00:25 Urine Clean Catch Urine Culture Pending Received Result Diagram: 01/14/1742601/14/17426 Assessment and Plan Problem List: (1) Community acquired pneumonia ICD Codes: J18.9 - Pneumonia, unspecified organism Status: Acute Plan: Follow Blood and Sputum cultures Continue IV Cefepime and Azithromycin Flu test negative (2) Failure of outpatient treatment ICD Codes: Z78.9 - Other specified health status (3) COPD exacerbation ICD Codes: J44.1 - Chronic obstructive pulmonary disease with (acute) exacerbation Status: Acute Lorraine Nael MD Jan 15, 2017 08:16
[2017-01-15] MEDS: FLUTICASONE 100 MCG/VILANTEROL 25 MCG INHALER INH SCH (08:23)
[2017-01-15] MEDS: TAMSULOSIN HCL 0.4 MG CAP PO SCH (08:48)
[2017-01-15] MEDS: FOLIC ACID 1 MG TAB PO SCH (08:48)
[2017-01-15] MEDS: LACTOBACILLUS ACIDOPHILUS TAB PO SCH ×2 (08:48→13:41)
[2017-01-15] MEDS: predniSONE 5 MG TAB PO SCH (08:48)
[2017-01-15] MEDS: FUROSEMIDE 20 MG TAB PO SCH (08:48)
[2017-01-15] MEDS: ASPIRIN 81 MG CHEW TAB CHEW SCH (08:49)
[2017-01-15] MEDS: ENOXAPARIN SODIUM 40 MG/0.4 ML SYRINGE SQ SCH (08:53)
[2017-01-15] MEDS: BISOPROLOL FUMARATE 5 MG TAB PO SCH (08:53)
[2017-01-15] MEDS: SODIUM CHLORIDE 0.9% FLUSH 10 ML FLUSH IV FLUSH SCH (09:06)
[2017-01-15] MEDS ORDERED: DIFL150T PO (15:05)
[2017-01-15] MEDS ORDERED: CEFU1TAB20 PO (15:05)
[2017-01-15] MEDS ORDERED: AZIT500T2 PO (15:05)
--- NOTE | 2017-01-15 15:08 | HHI.DS ---
Discharge Summary Admission Date Jan 13, 2017 at 05:41 Discharge Date: Jan 15, 2017 Admitting Diagnosis Sepsis; pneumonia; copd (1) Failure of outpatient treatment ICD Code: Z78.9 - Other specified health status Diagnosis: Principal (2) Community acquired pneumonia ICD Code: J18.9 - Pneumonia, unspecified organism Diagnosis: Principal Status: Acute (3) COPD exacerbation ICD Code: J44.1 - Chronic obstructive pulmonary disease with (acute) exacerbation Diagnosis: Secondary Status: Acute (4) Hypoxia ICD Code: R09.02 - Hypoxemia Diagnosis: Secondary Status: Acute Procedures none Brief History - From Admission Written by Farzaneh Bashir, acting as scribe for Dr. Bustillo on 01/13/17 at 13:50. Mr. Palacio is a 71-year-old male patient with a known medical history of hypertension, hyperlipidemia, chronic pain with intrathecal pain pump and COPD who presented to the ED with complaints of worsening shortness of breath, fever and cough. Patient states he has completed a 10-day course of Levaquin and steroids for community-acquired pneumonia, started to feel better when all of a sudden overnight he developed a fever of 102 and developed worsening dyspnea and chills. Denies any recent chest pain, headache, abdominal pain, nausea, vomiting, diarrhea or dysuria. Patient does follow with Dr. 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 Usually uses a Trilogy machine at home for COPD. Also sees Dr. Dexter for his pain management and management of his intrathecal pain pump. It should be noted that patient usually has pneumonia every couple years requiring antibiotics. CBC/BMP: 01/14/1742601/14/17426 Significant Findings Laboratory Tests Test 01/13/17 00:25 01/13/17 04:00 01/13/17 04:05 01/13/17 08:15 Urine Protein 30 mg/dL (NEG-TRACE) Urine Glucose (UA) 100 mg/dL (NEG) Urine Occult Blood TRACE (NEG) Urine Leukocyte Esterase SMALL (NEG) Urine RBC 4-9 /hpf (0-3) Urine WBC 50-99 /hpf (0-5) Urine Mucus FEW /lpf (OCC) Urine Yeast with Hyphae MANY (NONE) White Blood Count 14.0 TH/MM3 (4.0-11.0) Neutrophils (%) (Auto) 86.9 % (16.0-70.0) Lymphocytes (%) (Auto) 6.6 % (9.0-44.0) Neutrophils # (Auto) 12.2 TH/MM3 (1.8-7.7) Lymphocytes # (Auto) 0.9 TH/MM3 (1.0-4.8) Eosinophils # (Auto) 0.6 TH/MM3 (0-0.4) Prothrombin Time 11.7 SEC (9.8-11.6) Blood Urea Nitrogen 38 MG/DL (7-18) Random Glucose 132 MG/DL (74-106) Albumin 3.1 GM/DL (3.4-5.0) Aspartate Amino Transf (AST/SGOT) 11 U/L (15-37) Sodium Level 134 MEQ/L (136-145) Chloride Level 97 MEQ/L (98-107) Carbon Dioxide Level 32.8 MEQ/L (21.0-32.0) Anion Gap 4 MEQ/L (5-15) Estimat Glomerular Filtration Rate 79 ML/MIN (>89) Troponin I LESS THAN 0.02 NG/ML Blood Gas HCO3 32 mmol/L (22-26) Blood Gas Base Excess 7.2 mmol/L (-2-2) Arterial Blood Partial Pressure CO2 51 mmHg (38-42) Arterial Blood Partial Pressure O2 212 mmHg (61-120) Test 01/13/17 11:30 01/14/17 04:27 White Blood Count 13.1 TH/MM3 (4.0-11.0) Red Blood Count 4.22 MIL/MM3 (4.50-5.90) Hemoglobin 11.5 GM/DL (13.0-17.0) Hematocrit 34.9 % (39.0-51.0) Neutrophils (%) (Auto) 89.6 % (16.0-70.0) Lymphocytes (%) (Auto) 5.8 % (9.0-44.0) Neutrophils # (Auto) 11.7 TH/MM3 (1.8-7.7) Lymphocytes # (Auto) 0.8 TH/MM3 (1.0-4.8) Blood Urea Nitrogen 46 MG/DL (7-18) Random Glucose 127 MG/DL (74-106) Total Protein 5.9 GM/DL (6.4-8.2) Albumin 2.4 GM/DL (3.4-5.0) Aspartate Amino Transf (AST/SGOT) 5 U/L (15-37) Carbon Dioxide Level 35.2 MEQ/L (21.0-32.0) Anion Gap 3 MEQ/L (5-15) Estimat Glomerular Filtration Rate 76 ML/MIN (>89) PE at Discharge Chronic left-sided crackles, clear right lung field, unlabored breathing, on nasal cannula, no acute distress Hospital Course Patient was admitted, started on IV antibiotics and steroids. The patient's fevers had resolved and his respiratory status had significantly improved. His oxygen demand returned to baseline at 4 L. His blood cultures were negative. Infectious disease was consulted and per their recommendations, the medicine team transitioned him to azithromycin and Ceftin by mouth upon discharge. Patient was noted to have Mari growing in his urine which was likely from the antibiotic regimen he had been on. He was also given a prescription for Diflucan. Patient has met maximum benefit from hospitalization and is currently stable for discharge. Pt Condition on Discharge: Stable Discharge Disposition: Discharge Home Discharge Time: <= 30 minutes Discharge Instructions Follow up Referrals: PCP Follow-up - 1 Week Pulmonology - 10 Days New Medications: Azithromycin (Azithromycin) 500 Mg Tab 500 MG PO DAILY for Infection, #4 TAB 0 Refills Cefuroxime (Cefuroxime) 500 Mg Tab 500 MG PO BID for Infection, #20 TAB 0 Refills Fluconazole (Diflucan) 150 Mg Tab 150 MG PO ONCE for Infection, #1 TAB 0 Refills Continued Medications: Albuterol 18 GM Inh (Ventolin Hfa 18 GM Inh) 90 Mcg/Act Aer 1 PUFF INH Q4H PRN for SHORTNESS OF BREATH, #1 INHALER 0 Refills Aspirin (Aspirin Children's) 81 Mg Chew 81 MG CHEW DAILY, TAB 0 Refills Atorvastatin (Atorvastatin) 80 Mg Tab 80 MG PO HS for Cholesterol Management, #30 TAB 0 Refills Bisoprolol (Bisoprolol) 5 Mg Tab 2.5 MG PO DAILY for Blood Pressure Management, #15 TAB 0 Refills Ergocalciferol (Vitamin D2) 2,000 Unit Tab 2000 UNITS PO WEEKLY for Nutritional Supplement, TAB 0 Refills Finasteride (Finasteride) 5 Mg Tab 5 MG PO HS for Manage Prostate Problems, #30 TAB 0 Refills Do not crush. Fluticasone-Vilanterol Inh (Breo Ellipta Inh) 100-25 Mcg/Act Inh 1 PUFF INH DAILY, #1 INHALER 0 Refills Use daily at the same time. Folic Acid (Folic Acid) 800 Mcg Cap 1600 MCG PO DAILY, CAP Furosemide (Furosemide) 20 Mg Tab 20 MG PO DAILY, #30 TAB 0 Refills Hydrocodone-Acetaminophen ([place]) 7.5-325 mg Tab 1 TAB PO Q6H PRN for PAIN, TAB 0 Refills Hydromorphone Liq (Dilaudid Liq) 1 Mg/Ml Liq 5 MG PO Q4H PRN for Pain Management, ML 0 Refills Ipratropium-Albuterol Neb (Duoneb) 0.5-2.5 Mg/3 Ml Neb 1 NEBULE INH Q6HR NEB PRN for Dypsnea, #120 NEBULE 0 Refills Potassium Chloride ER (Potassium Chloride ER) 20 Meq Tab 99 MEQ PO DAILY for Electrolyte Replacement, #30 TAB 0 Refills Tamsulosin (Flomax) 0.4 Mg Cap 0.4 MG PO BID for Manage Prostate Problems, #30 CAP 0 Refills Discontinued Medications: Prednisone (Prednisone) 20 Mg Tab 20 MG PO BID for COPD, #14 TAB Ismael Ly MD Jan 15, 2017 15:08
--- NOTE | 2017-01-15 15:08 | HHI.DCPOC ---
Discharge Care Plan Diagnosis: (1) Failure of outpatient treatment (2) Hypoxia Goals to Promote Your Health * To prevent worsening of your condition and complications * To maintain your health at the optimal level Directions to Meet Your Goals Take your medications as prescribed Follow your dietary instruction Follow activity as directed Keep your appointments as scheduled Take your immunizations and boosters as scheduled If your symptoms worsen call your PCP, if no PCP go to Urgent Care Center or Emergency Room Smoking is Dangerous to Your Health. Avoid second hand smoke Call the 24-hour hour crisis hotline for domestic abuse at Ismael Ly MD Jan 15, 2017 15:08
== END 2017-01-15 17:50 | disposition home or self-care (01) | DRG 190 ==
LOC: PHED 03:38 → PHEDA 05:41 → PHICU 10:55
PROVIDERS: ADMIT Hospitalist; ATTEND Hospitalist
DX: J44.0 Chronic obstructive pulmonary disease with (acute) lower respiratory infection (principal); J18.9 Pneumonia, unspecified organism; Q61.3 Polycystic kidney, unspecified; J98.6 Disorders of diaphragm; J44.1 Chronic obstructive pulmonary disease with (acute) exacerbation; R09.02 Hypoxemia; E78.5 Hyperlipidemia, unspecified; I10 Essential (primary) hypertension; Z96.89 Presence of other specified functional implants; R82.99 Other abnormal findings in urine; I25.10 Atherosclerotic heart disease of native coronary artery without angina pectoris; Z95.5 Presence of coronary angioplasty implant and graft; G89.29 Other chronic pain; M54.9 Dorsalgia, unspecified; N40.0 Benign prostatic hyperplasia without lower urinary tract symptoms; Z87.01 Personal history of pneumonia (recurrent); I51.7 Cardiomegaly
CPT/HCPCS: 36600; 71010; 80053; 81001; 82550; 82805; 83605; 83735; 83880; 84484; 85025; 85610; 85730; 87040; 87086; 87205; 87641; 87804; 93005; 94002; 94003; 94150; 94640; 94664; 96374; J0456; J0692; J1650; J2930; J7050; J7512; J7613